=== PATIENT | male | born 1945 ===

== ENCOUNTER 2025-01-26 07:41 | Outpatient (REF) | payer OTHER, SELFPAY ==
[2025-01-26 12:59] LABS: MANUAL DIFF FLAG NO
[2025-01-26 13:11] LABS: Hematocrit 46.5 % (42.0-52.0); Hemoglobin 15.3 g/dl (14.0-18.0); Imm Gran Abs Auto 0.02 X10*3/uL (0.00-0.03); Imm Gran Pct Auto 0.3 % (0.0-0.4); Lymphocytes Absolute Auto 1.4 X10*3/uL (1.2-4.9); Mean Corpuscular HGB Conc 32.9 g/dl (31.0-36.0); Mean Corpuscular Hemoglobin 29.7 pg (27.0-33.0); Mean Corpuscular Volume 90.1 fL (80.0-98.0); NRBC Abs Auto 0.000 X10*3/uL (0.0-0.012); NRBC Pct Auto 0.0 /100WBC (0.0-0.2); Platelet Count 226 X10*3/uL (160-400); Red Blood Count 5.16 X10*6/uL (4.60-5.80); White Blood Count 5.8 X10*3/uL (4.8-10.8)
[2025-01-26 13:39] LABS: Appearance Urine Clear; Glucose Urine UA >=1000 mg/dL (Negative); PH 6.0 (5.0-9.0); Specific Gravity - Urine 1.025 (1.005-1.025); UMIC TRIGGER UACC YES
[2025-01-26 13:55] LABS: Alanine Aminotransferase 36 U/L (0-40); Albumin Level 4.2 g/dL (3.5-5.0); Alkaline Phosphatase 106 U/L (39-117); Anion Gap 10 (12-20); Aspartate Amino Transferase 31 U/L (5-37); Blood Urea Nitrogen 26 mg/dL (9-16); Calcium 9.5 mg/dL (8.4-10.2); Carbon Dioxide 29 mmol/L (22-29); Chloride 105 mmol/L (96-108); Cholesterol 248 mg/dL (<200); Estimated Glomerular Filt Rate 48; HDL Cholesterol 39 mg/dL (>40); Magnesium 2.2 mg/dL (1.6-2.6); Potassium 5.1 mmol/L (3.3-5.1); Sodium 139 mmol/L (135-145); Total Protein 8.0 g/dL (6.5-8.0); Triglycerides 193 mg/dL (<150)
[2025-01-26 14:02] LABS: Folate 12.6 ng/mL (> or = 4.0); Vitamin B12 681 pg/mL (200-900)
[2025-01-26 14:16] LABS: Microalbum/Creatinine Ratio Ur 622.6 ug/mg cr (<30)
[2025-01-27 07:18] LABS: Syphilis Screen Nonreactive (Nonreactive)
[2025-01-27 07:34] LABS: HBS Num1 0.00 mIU/mL (0-7.99); HBsAGNum1 0.43 S/CO (0.00-0.99); HIV Num 1 0.05 S/CO (0.00-0.99); Hepatitis B Surface Antigen Negative (Negative); ~Hepatitis B Surface Antibody NONREACTIVE (Nonreactive)
[2025-01-31 03:14] LABS: VITAMIN D (1,25 OH) D3 26 pg/mL; Vit D (1,25-Dihydroxy) Total 26 pg/mL (18-72); Vitamin D (1,25 OH) D2 <8 pg/mL
== END 2025-01-26 07:42 | disposition home or self-care (01) ==
LOC: HO.HKASLDS 07:41
PROVIDERS: PCP Student in an Organized Health Care Education/Training Program; Visit Provider Student in an Organized Health Care Education/Training Program
DX: I10 Essential (primary) hypertension (principal); E11.9 Type 2 diabetes mellitus without complications; E78.5 Hyperlipidemia, unspecified; E03.9 Hypothyroidism, unspecified; G62.9 Polyneuropathy, unspecified; I87.2 Venous insufficiency (chronic) (peripheral); R60.0 Localized edema; I73.9 Peripheral vascular disease, unspecified; L85.3 Xerosis cutis; Z23 Encounter for immunization
CPT/HCPCS: 36415; 80053; 80061; 81001; 82043; 82570; 82607; 82652; 82746; 83036; 83735; 84443; 85025; 86706; 86780; 87340; 87389; 90471; 90656; 96127; 99202

== ENCOUNTER 2025-01-26 07:41 | Outpatient (AMB) | payer OTHER, SELFPAY ==
--- OUTSIDE RECORDS SUMMARY | 2025-01-26 07:44 | XMS_ITS | Clinical Summary ---
Author Organization [facility] Address [address] [place] [address] Phone Care Team Providers Care Ventilating Engineer Name Role Phone Physician, No Pcp Primary Care Provider Unavaila ble Allergies No known active allergies Medications SITagliptin-metF ORMIN (JANUMET) 50-1,000 mg per tablet Take 1 tablet by mouth 2 (two) times a day with meals. Active dapagliflozin propanediol (Farxiga) 10 mg tablet Take 1 tablet (10 mg total) by mouth 1 (one) time each day. Active gabapentin (NEURONTIN) 400 mg capsule Take 1 capsule (400 mg total) by mouth at bedtime. Active levothyroxine (SYNTHROID, LEVOTHROID) 50 mcg tablet Take 1 tablet (50 mcg total) by mouth 1 (one) time each day before breakfast. Active amLODIPine (NORVASC) 5 mg tablet Take 1 tablet (5 mg total) by mouth 1 (one) time each day. Active lisinopril (PRINIVIL,ZESTRI L) 40 mg tablet Take 1 tablet (40 mg total) by mouth 1 (one) time each day. Active simvastatin (ZOCOR) 40 mg tablet Take 1 tablet (40 mg total) by mouth at bedtime. Active insulin glargine (LANTUS SoloStar) 100 unit/mL (3 mL) injection pen Inject 20-30 Units under the skin at bedtime as needed (blood glucose reading). Active insulin lispro 100 unit/mL injection Inject under the skin 3 (three) times a day before meals. 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 ([place] V24, [place] V28) 08/30/2024 Encounters Date Type Department Care Team Description 01/02/2025 9:45 AM EDT Office Visit [facility] - [place] [address] [place] [id number] Thai Canales, DPM Ulcer of toe of left foot, limited to breakdown of skin ([place] V24, [place] V28) (Primary Dx); Dermatophytosis of nail; Pain in toe of right foot; Pain in toe of left foot; Diabetic mononeuropathy simplex ([place] V24, [place] V28) from Last 3 Months Medical History Medical History Date Comments Hypertension Diabetes mellitus ([place] V24, [place] V28) Hypothyroidism Chronic kidney disease Social History Tobacco Use Types Packs/Day Years Used Date Smoking Tobacco: Former Cigarettes 0.2 4.4 S tarted: 08/30/2020 Smokeless Tobacco: Never Tobacco Cessation:Counseling Given: Not Answered Interpersonal Safety Answer Date Record ed Physical Abuse Unrecognized value 08/30/2024 Verbal Abuse Unrecognized value 08/30/2024 Sex and Gender Information Value Date Recorded Sex Assigned at Not on file Legal Sex Male 10:08 AM EDT Gender Identity Not on file Sexual Orientation Not on file Obstetrics History Last Filed Vital Signs Vital Sign Reading Time Taken Comments Blood Pressure 150/71 09/07/2024 7:54 AM EDT Pulse 68 09/07/2024 7:54 AM EDT Temperature 37.1 C (98.7 F) 09/07/2024 7:54 AM EDT Respiratory Rate 16 09/07/2024 7:54 AM EDT Oxygen Saturation 96% 09/07/2024 7:54 AM EDT Inhaled Oxygen Concentration - - Weight 107 kg (235 lb 9.6 oz) 08/30/2024 3:58 PM EDT Height 172.7 cm (5' 8 ) 08/30/2024 10:22 AM EDT Body Mass Index 35.82 08/30/2024 10:22 AM EDT Plan of Treatment Upcoming Encounters Date Type Department Care Team (Late st Contact Info) Description 04/04/2025 9:30 AM EST Office Visit Orthopedic Surgery - [place] [facility] [address] [facility] [address] [place] [address] Thai Canales, DPM [address] [facility] [address] [place] [address] Health Maintenance Due Date Last Done Comments Diabetes: Annual Retina Eye Exam 1955 DTaP,Tdap,and Td Vaccines (1 - Tdap) 1962 Pneumococcal Vaccine: 50+ Years (1 of 2 - PCV) 1962 Zoster Vaccines (1 of 2) 1993 RSV Immunization Adult Patients (1 - 1-dose 75+ series) 2018 Depression Screening 03/23/2024 Cholesterol Screening (Lipid Panel) 08/30/2024 Medicare Annual Wellness Visit 08/30/2024 Social Influencers of Health Screening 08/30/2024 Diabetes: Annual Urine Albumin-Creatinine Ratio (uACR) 09/05/2024 COVID-19 Vaccine ( season) 2024 Influenza Vaccine (#1) 2024 Diabetes: Blood Sugar Control Test (HGBA1C) 03/01/2025 08/30/2024 Diabetes: Annual Foot Exam 08/30/2025 08/30/2024 Diabetes: Annual GFR (Glomerular Filtration Rate) 09/07/2025 09/07/2024, 09/06/2024, 09/04/2024, Additional history exists Falls Risk Assessment 09/07/2025 09/07/2024 HIB Vaccines Aged Out No longer eligi ble based on patient's age to complete this topic HPV Vaccines Aged Out No longer eligi ble based on patient's age to complete this topic Hepatitis A Vaccines Aged Out No long er eligible based on patient's age to complete this topic Hepatitis B Vaccines Aged Out No long er eligible based on patient's age to complete this topic IPV Vaccines Aged Out No longer eligi ble based on patient's age to complete this topic MMR Vaccines Aged Out No longer eligi ble based on patient's age to complete this topic Meningococcal ACWY Vaccine Aged Out N o longer eligible based on patient's age to complete this topic Meningococcal B Vaccine Aged Out No l onger eligible based on patient's age to complete this topic RSV Immunization Patients Under 20 months Aged Out No longer eligible based on patient's age to complete this topic Varicella Vaccines Aged Out No longer eligible based on patient's age to complete this topic Procedures Procedure Name Priority Date/Time Associated Diagnosis Comments BASIC METABOLIC PANEL Routine 09/07/2024 5:36 AM EDT HEMOGLOBIN A1C Add-On 08/30/2024 11:55 AM EDT from Last 3 Months or Most Recently Relevant to Health Maintenance Results * (ABNORMAL) Basic metabolic panel (09/07/2024 5:36 AM EDT) Sodium 139 133 - 145 mmol/L LAB CHEMISTRY METHOD 09/07/2024 7:35 AM [facility] Potassium 4.7 3.5 - 5.5 mmol/L LAB CHEMISTRY METHOD 09/07/2024 7:35 AM [facility] Chloride 107 96 - 110 mmol/L LAB CHEMISTRY METHOD 09/07/2024 7:35 AM [facility] CO2 27 21 - 32 mmol/L LAB CHEMISTRY METHOD 09/07/2024 7:35 AM [facility] Anion Gap 5 3 - 11 LAB CHEMISTRY METHOD 09/07/2024 7:35 AM [facility] Glucose 57(L) 70 - 100 mg/dL LAB CHEMISTRY METHOD 09/07/2024 7:35 AM [facility] BUN 30(H) 5 - 25 mg/dL LAB CHEMISTRY METHOD 09/07/2024 7:35 AM [facility] Creatinine 1.30 0.70 - 1.30 mg/dL LAB CHEMISTRY METHOD 09/07/2024 7:35 AM [facility] eGFR 55(L) >=60 mL/min/1. 73m2 LAB CHEMISTRY METHOD 09/07/2024 7:35 AM [facility] Comment:Calculation based on the Chronic Kidney Disease Epidemiology Collaboration (CKD-EPI) equation refit without adjustment for race. BUN/Creatinine Ratio 23.1 LAB CHEMISTRY METHOD 09/07/2024 7:35 AM EDT [facility] Calcium 8.7 8.5 - 10.5 mg/dL LAB CHEMISTRY METHOD 09/07/2024 7:35 AM EDT [facility] Blood Venous blood specimen / Unknown Venipuncture / Unknown 09/07/2024 5:36 AM EDT 09/07/2024 6:31 AM EDT Zen Mcneill MD LAB BLOOD ORDERABLES Final Resul t Performing Organization Address City/[facility]/ZIP Co de Phone Number [facility] [address] [place] [address], [place] [phone] * (ABNORMAL) Hemoglobin A1c (08/30/2024 11:55 AM EDT) Hemoglobin A1C 8.2(H) <6.5 % LAB CHEMISTRY METHOD 08/30/2024 10:15 PM EDT [facility] Mean Bld Glu Estim. 189 mg/dL LAB CHEMISTRY METHOD 08/30/2024 10:15 PM EDT [facility] Blood Venous blood specimen / Unknown Venipuncture / Unknown 08/30/2024 11:55 AM EDT 08/30/2024 12:02 PM EDT Sera DIA LAB BLOOD ORDERABLES Final Resul t [facility] [address] [place] [address], [place] [phone] from Last 3 Months or Most Recently Relevant to Health Maintenance Insurance MEDICARE ADVANTAGE GENERIC Advance Directives Documents on File Type Date Recorded Patient Burr Grinder Expl anation Advance Directives and Living Will 09/05/2024 3:41 PM [facility] * Full Code - Default (Latest Code Status on File) Date Activated Date Inactivated Comments 08/30/2024 1:52 PM 09/07/2024 5:38 PM This is orde r is used when code status has not been discussed with the patient, or code status is otherwise unknown/unconfirmed To update the patient's code status, place a code status order. Do not modify or discontinue any currently active code status orders. Healthcare Agents on File Name Relationship Healthcare Agent Relationship Communication [facility] Health Care Agent [phone] (Mobile ) Care Teams Ventilating Engineer Relationship Specialty Start Date End Date Physician, No Pcp PCP - General 08/30/24
--- NOTE | 2025-01-26 08:05 | MHC.PC.OV ---
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 Diabetes Mellitus: The patient has a history of diabetes mellitus and associated kidney problems, for which he takes an unspecified medication. He uses Humalog insulin, administering 10 units after each meal (breakfast, lunch, and dinner). He reports he has not previously seen an diamond mounter for his eyes, nor has he consulted with a heel seam rubber or a prosthodontist/educator regarding his condition. Hypertension Currently on medication has not taken 3 months Hypothyroid Same as above History of Prostate Surgery: The patient underwent a robotic prostate surgery approximately two months ago. He also has a history of a urinary implant placement. History of left foot surgery Recently went to the tester vibrator equipment for follow-up he also states he gets his nails clipped in his feet looked at at the same time Surgical History: - Robotic prostate surgery, approximately two months ago. - Urinary implant placement. Medications: As listed Past Medical History - Diabetes Mellitus Hypertension Hypothyroid Health Maintenance - The patient has not seen an diamond mounter, heel seam rubber, or chemical educator. - Referrals will be made to ophthalmology, podiatry, a heel seam rubber, and a chemical educator. [facility] Medical History (Updated 01/26/25 @ 08:58 by Chong Ibrahim MD) Xerosis cutis Peripheral vascular disease Edema of left lower leg due to peripheral venous insufficiency Peripheral neuropathy Hypertension Hypothyroid Diabetes type 2 Family History (Updated 01/26/25 @ 08:06 by Jaymie Jefferson CMA) Mother No problems noted. Father No problems noted. Social History Housing: House Patient Tobacco Use Status: Never used Tobacco service: No Current occupational status: retired Cognitive needs: Yes (walker) Hearing needs: No Vision needs: Yes Questionnaire PHQ-9 Over the last 2 weeks, how often have you been bothered by any of the following problems? 1. Little interest or pleasure in doing things: several days 2. Feeling down, depressed, or hopeless: not at all 3. Trouble falling or staying asleep, or sleeping too much: not at all 4. Feeling tired or having little energy: several days 5. Poor appetite or overeating: several days 6. Feeling bad about yourself - or that you are a failure or have let yourself or your family down: not at all 7. Trouble concentrating on things, such as reading the newspaper or watching television: not at all 8. Moving or speaking so slowly that other people could have noticed. Or the opposite - being so fidgety or restless that you have been moving around a lot more than usual: not at all 9. Thoughts that you would be better off or of hurting yourself in some way: not at all Total score: 3 Depression Screening Interpretation: Negative Depression Screening Done: Yes Source: Developed by Drs. Freeman Sheets, Alyse Reid, Sukhwinder Soria and colleagues, with an educational trina from [employer]. Thrive Questionnaire Date Thrive assessed: 01/26/25 I am a: Patient What is your living situation today?: I choose not to answer this question Within the past 12 months, did the food you bought not last and you didn't have the money to get more?: Never true Within the past 12 months, did you worry whether your food would run out before you got money to buy more?: Never true Do you have trouble paying for medicines?: No Do you have trouble getting transportation to medical appointments?: No Do you have trouble paying your heating and electricity bill?: No Do you have trouble taking care of your child, family member or friend?: No Are you currently unemployed and looking for a job?: I choose not to answer this question Are you interested in more education?: I choose not to answer this question Please select the resources that you would like help with: None Currently or been in a relationship where the following occur: I choose not to answer THRIVE Score: 0 AUDIT C Alcohol Use Questionnaire (AUDIT-C) 1. How often do you have a drink containing alcohol?: Never Total Score: 0 LUIS-7 AMB Questionnaire LUIS-7 Date LUIS - 7 assessed: 01/26/25 Feeling nervous, anxious, or on edge: 0 = Not at all Not being able to stop or control worryin = Not at all Worrying too much about different things: 0 = Not at all Trouble relaxin = Not at all Being so restless that it is hard to sit still: 0 = Not at all Becoming easily annoyed or irritable: 0 = Not at all Feeling afraid as if something awful might happen: 0 = Not at all Total LUIS-7 score (0-4 normal; 5-9 mild; 10-14 moderate; 15-21 severe): 0 Source: Developed by Drs. Freeman Sheets, Alyse Reid, Sukhwinder Soria and colleagues, with an educational trina from [employer]. Review of Systems Narrative Review of Systems - Neurological: Reports neuropathy. 10-point ROS reviewed and negative except as noted in HPI Physical exam (Primary Care) Vital Signs: Last Vital Signs Temp 98.4 F 01/26/25 08:12 Pulse 61 01/26/25 08:12 BP 187/77 H 01/26/25 08:12 Pulse Ox 96 01/26/25 08:12 Oxygen Delivery Method Room Air 01/26/25 08:12 BMI result Body Mass Index 35.3 Tobacco/Smoking Status: Tobacco use Status Tobacco use date assessed 01/26/25 01/26/25 08:07 Patient Tobacco Use Status Never used Tobacco 01/26/25 08:07 PHQ-9: PHQ-9 Score PHQ-9: Total score 3 01/26/25 08:24 Depression Screening Interpretation: Negative Thrive Assessment: Date of Thrive Assessment Date Thrive assessed 01/26/25 01/26/25 08:07 Currently or been in a relationship where the following occur: I choose not to answer Narrative Physical Exam General: Well-appearing, in no acute distress. Vital signs: Within normal limits. HEENT: Normocephalic, atraumatic. PERRLA, EOMI. Conjunctiva clear, sclera anicteric. Oropharynx clear, mucous membranes moist. TMs intact bilaterally. Neck: Supple, no lymphadenopathy, no thyromegaly, no JVD or carotid bruits. Cardiovascular: RRR, normal S1/S2, no murmurs, rubs, or gallops. Peripheral pulses 2+ and symmetric. No edema. Respiratory: Lungs clear to auscultation bilaterally, no wheezes, rales, or rhonchi. Normal effort. Abdomen: Soft, non-tender, non-distended. Normoactive bowel sounds. No hepatosplenomegaly, no masses. MSK: Full range of motion, no joint swelling or deformity. Normal gait. Skin: Warm, dry, intact. No rashes, lesions, or pallor. Neuro: Alert and oriented x3. Cranial nerves II-XII intact. Strength 5/5 throughout. Sensation intact. Reflexes 2+ symmetric. Normal coordination and gait. Psych: Appropriate mood and affect. Normal judgment and insight. Patient reports a history of depression and was taking medication for it. Office Procedures Flu Questionnaire Does the patient have a severe egg allergy?: No Does the patient have severe life threatening allergies?: No Does the patient have a fever or illness today?: No Has the patient ever had Guillain-Alexandria Syndrome?: No Has the patient ever had any past reaction to a flu shot?: No Immunizations Fluarix [id number] (PF) 45 mcg (15 mcg x 3)/0.5 mL IM syringe Performing Provider: Chong Ibrahim MD Performing Location: [facility] [place] [place] [facility] Administered by: Hernandez Handy MA on 01/26/25 08:52 Dose Route Admin Location Dispensed Lot Number Expiration Date [facility] Director [employer] 0.5 mL IM Left Deltoid 0.5 mL [id number] 09/19/25 [id number] [employer] VIS Given Date VIS Provided VIS Publication Date 01/26/25 Single Vaccine 24 Eligibility Eligibility Date Funding Source Not [facility] Eligible 01/26/25 Private Coding Level of Care Code New Pt Level 4 (27743) Diagnoses Diabetes type 2 E11.9 Hypothyroid E03.9 Hypertension I10 Peripheral neuropathy G62.9 Edema of left lower leg due to peripheral venous insufficiency I87.2; R60.0 Peripheral vascular disease I73.9 Xerosis cutis L85.3 Assessment & Plan Assessment & Plan (1) Diabetes type 2: Code(s): E11.9 - Type 2 diabetes mellitus without complications Category: Medical (2) Hypothyroid: Code(s): E03.9 - Hypothyroidism, unspecified Category: Medical (3) Hypertension: Code(s): I10 - Essential (primary) hypertension Category: Medical (4) Peripheral neuropathy: Code(s): G62.9 - Polyneuropathy, unspecified Category: Medical (5) Edema of left lower leg due to peripheral venous insufficiency: Code(s): I87.2 - Venous insufficiency (chronic) (peripheral); R60.0 - Localized edema Category: Medical (6) Peripheral vascular disease: Code(s): I73.9 - Peripheral vascular disease, unspecified Category: Medical (7) Xerosis cutis: Code(s): L85.3 - Xerosis cutis Category: Medical Plan Consent Patient was informed and verbally consented to the use of an ambient scribe for clinic note documentation during this visit. Plan 1. Diabetes Mellitus With peripheral neuropathy - Continue Humalog insulin 10 units after each meal. - Order CBC to check hemoglobin and white and red blood cell counts. - Refer to ophthalmology for a diabetic eye exam. - Refer to a heel seam rubber for dietary counseling. - Refer to a chemical educator for education on diabetes management. - Refer to podiatry for foot care. 2. Hypertension Refill and continue medication 3. Hypothyroid Refill and continue medication Discussion Notes I discussed the patient's medical history, including diabetes hypertension and hypothyroid. We reviewed his current insulin regimen of 10 units of Humalog after each meal. I informed him that I will place referrals for him to see multiple specialists, including a tester vibrator equipment, an diamond mounter, a heel seam rubber, and a chemical educator, to ensure comprehensive management of his diabetes. I also informed him that comprehensive labs will be ordered Patient Instructions - Continue taking current medication for chronic diseases - You will be contacted to schedule appointments with a foot doctor (tester vibrator equipment), an eye doctor, a heel seam rubber, and a chemical educator. - Please have the ordered blood work completed Medical Decision Making This 80-year-old male with a history of multiple comorbidities. Physical exam revealed neuropathy and left-sided edema, likely complications of his chronic diabetes. The patient's care for his diabetes appears fragmented, as he has not seen specialists such as an diamond mounter, heel seam rubber, or chemical educator. To optimize his care and prevent further complications, a multi-disciplinary approach is necessary. Therefore, I am placing referrals to podiatry, ophthalmology, nutrition, and a chemical educator. A comprehensive lab work was ordered Total time spent caring for the patient today was 30 minutes. This includes time spent before the visit reviewing the chart, time spent documenting, and time spent reviewing laboratory results, diagnostic imaging, medications, performing a medically necessary evaluation, counseling on diagnoses, care coordination Orders: Orders Hemoglobin A1c Today Z13.9 - Encounter for screening, unspecified Hepatitis B Surface Antigen Today Z13.9 - Encounter for screening, unspecified Syphilis Screen Today Z13.9 - Encounter for screening, unspecified Complete Blood Count Auto Diff Today Z13.9 - Encounter for screening, unspecified Comprehensive Met. Panel Today Z13.9 - Encounter for screening, unspecified Hepatitis B Surface Antibody Today Z13.9 - Encounter for screening, unspecified HIV Ab/Ag Today Z13.9 - Encounter for screening, unspecified Lipid Panel Today Z13.9 - Encounter for screening, unspecified Magnesium Today Z13.9 - Encounter for screening, unspecified Microalbumin, Random (w Creat) Today Z13.9 - Encounter for screening, unspecified TSH reflex Free T4 Today Z13.9 - Encounter for screening, unspecified UA CC w/rflx Micro + Cult Today Z13.9 - Encounter for screening, unspecified Vitamin B12 and Folate Today Z13.9 - Encounter for screening, unspecified Vitamin D 1,25 dihydroxy Today Z13.9 - Encounter for screening, unspecified Influenza [id number] Immunization Today Z23 - Encounter for immunization Referrals Nurse Navigator Referral E11.9 - Type 2 diabetes mellitus without complications Podiatry Referral E11.9 - Type 2 diabetes mellitus without complications, Z13.89 - Encounter for screening for other disorder Nutrition/Dietitian Referral E11.9 - Type 2 diabetes mellitus without complications Ophthalmology Referral Z13.5 - Encounter for screening for eye and ear disorders Medications: New insulin lispro (Humalog KwikPen (U-100) Insulin) 10 units (0.1 mL) subcut TID 15 mL 3RF insulin glargine (Lantus U-100 Insulin) 10 units (0.1 mL) subcut BID 10 mL 3RF dapagliflozin propanediol (Farxiga) 10 mg PO DAILY 90 tabs 0RF simvastatin 40 mg PO BEDTIME 90 tabs 0RF levothyroxine 50 mcg PO DAILY 90 caps 0RF lisinopril 40 mg PO DAILY 90 tabs 0RF sitagliptin phos-metformin 50-1,000 mg (Lennyumet) 1 tab PO BID 90 tabs 0RF
[2025-01-26 08:12] VITALS: BP 187/77; PULSE 61; TEMP 36.9; O2SAT 96; BMI 35.3
== END 2025-01-26 08:51 | disposition home or self-care (01) ==
PROVIDERS: Visit Provider Student in an Organized Health Care Education/Training Program
DX: E11.9 Type 2 diabetes mellitus without complications (principal); E03.9 Hypothyroidism, unspecified; I10 Essential (primary) hypertension; G62.9 Polyneuropathy, unspecified; I87.2 Venous insufficiency (chronic) (peripheral); R60.0 Localized edema; I73.9 Peripheral vascular disease, unspecified; L85.3 Xerosis cutis; Z23 Encounter for immunization

== ENCOUNTER 2025-02-03 14:16 | Outpatient (AMB) | payer OTHER, SELFPAY ==
--- NOTE | 2025-02-03 14:18 | MHC.PC.OV ---
Vital Signs 02/03/25 14:19 Height 5 ft 7.52 in Weight 232 lb 4 oz BMI 35.8 BP 166/69 H Blood Pressure Location Lt brachial Position Sitting Respiration 16 Pulse 64 Pulse Source Pulse Oximeter Temp 97.8 F Temp Source Oral Pulse Oximetry (%) 94 Oxygen Delivery Method Room Air Intake Visit Reasons: Lab Review Allergies No Known Allergies Allergy (Verified 02/03/25 14:19) Tobacco use date assessed: 01/26/25 Dental Screening Dental Screen Date: 01/26/25 HPI HPI Comments History of Present Illness Details History of Present Illness The patient is an 80-year-old male presenting for a review of laboratory results. Type 2 Diabetes Mellitus: The patient has a history of diabetes, and his recent hemoglobin A1c was 11.4%, which is an increase from his previous level of 8%. He reports not taking his medications for the past 3 months. There has been an issue with the pharmacy in obtaining his Lantus prescription. Essential Hypertension: The patient's blood pressure is noted to be slightly high, which is attributed to not receiving his amlodipine prescription. He has been taking lisinopril, and his blood pressure is lower than at his last visit. Chronic Kidney Disease: The patient has a known history of kidney problems, and his recent labs indicate that his kidneys are a working a little slow. He is urinating a lot of protein, which indicates renal damage. Hyperlipidemia: The patient's lab results show elevated triglycerides at 193 mg/dL and total cholesterol at 248 mg/dL, which is attributed to not taking his medication. Medications: - Amlodipine for hypertension - Lisinopril for hypertension - Farxiga for diabetes - Lantus for diabetes Social History: - The patient reports difficulty obtaining medical records from [place], stating that they charge a fee for sending them. Diagnostic Results: - CBC: White blood cells, red blood cells, hemoglobin, and platelets are normal. - Basic Metabolic Panel: Sodium and potassium are normal. - Renal function: Kidneys are working a little slow. - Urinalysis: Shows significant proteinuria. - Glucose: Elevated. - Hemoglobin A1c: 11.4%. - Comprehensive Metabolic Panel: Calcium, magnesium, and liver function are normal. - Lipid Panel: Triglycerides 193 mg/dL, Total Cholesterol 248 mg/dL. - Vitamin levels: Vitamin B12 is 681, vitamin D and folate are normal. - Thyroid function: Normal. Past Medical History - History of kidney problems treated in [place]. Health Maintenance - Monitoring of diabetes via HbA1c. - Monitoring of kidney function. - Monitoring of lipid panel. [facility] Medical History (Updated 02/05/25 @ 19:47 by Chong Ibrahim MD) Hyperlipidemia Chronic kidney disease Xerosis cutis Peripheral vascular disease Edema of left lower leg due to peripheral venous insufficiency Peripheral neuropathy Hypertension Hypothyroid Diabetes type 2 Family History (Updated 01/26/25 @ 08:06 by Jaymie Jefferson CMA) Mother No problems noted. Father No problems noted. Social History Housing: House Patient Tobacco Use Status: Never used Tobacco service: No Current occupational status: retired Cognitive needs: Yes (walker) Hearing needs: No Vision needs: Yes Questionnaire Thrive Questionnaire Date Thrive assessed: 01/26/25 I am a: Patient What is your living situation today?: I choose not to answer this question Within the past 12 months, did the food you bought not last and you didn't have the money to get more?: Never true Within the past 12 months, did you worry whether your food would run out before you got money to buy more?: Never true Do you have trouble paying for medicines?: No Do you have trouble getting transportation to medical appointments?: No Do you have trouble paying your heating and electricity bill?: No Do you have trouble taking care of your child, family member or friend?: No Are you currently unemployed and looking for a job?: I choose not to answer this question Are you interested in more education?: I choose not to answer this question Please select the resources that you would like help with: None Currently or been in a relationship where the following occur: I choose not to answer THRIVE Score: 0 LUIS-7 AMB Questionnaire LUIS-7 Date LUIS - 7 assessed: 01/26/25 Source: Developed by Drs. Freeman Sheets, Alyse Reid, Sukhwinder Soria and colleagues, with an educational trina from [employer]. Review of Systems Narrative Review of Systems 10-point ROS reviewed and negative except as noted in HPI Physical exam (Primary Care) Vital Signs: Last Vital Signs Temp 97.8 F 02/03/25 14:19 Pulse 64 02/03/25 14:19 Resp 16 02/03/25 14:19 BP 166/69 H 02/03/25 14:19 Pulse Ox 94 02/03/25 14:19 Oxygen Delivery Method Room Air 02/03/25 14:19 BMI result Body Mass Index 35.8 Tobacco/Smoking Status: Tobacco use Status Tobacco use date assessed 01/26/25 02/03/25 14:31 Patient Tobacco Use Status Never used Tobacco 02/03/25 14:31 Thrive Assessment: Date of Thrive Assessment Date Thrive assessed 01/26/25 02/03/25 14:31 Currently or been in a relationship where the following occur: I choose not to answer Narrative Physical Exam General: Well-appearing, in no acute distress. Vital signs: Blood pressure is a little high. HEENT: Normocephalic, atraumatic. PERRLA, EOMI. Conjunctiva clear, sclera anicteric. Oropharynx clear, mucous membranes moist. TMs intact bilaterally. Neck: Supple, no lymphadenopathy, no thyromegaly, no JVD or carotid bruits. Cardiovascular: RRR, normal S1/S2, no murmurs, rubs, or gallops. Peripheral pulses 2+ and symmetric. No edema. Respiratory: Lungs clear to auscultation bilaterally, no wheezes, rales, or rhonchi. Normal effort. Abdomen: Soft, non-tender, non-distended. Normoactive bowel sounds. No hepatosplenomegaly, no masses. MSK: Full range of motion, no joint swelling or deformity. Normal gait. Skin: Warm, dry, intact. No rashes, lesions, or pallor. Neuro: Alert and oriented x3. Cranial nerves II-XII intact. Strength 5/5 throughout. Sensation intact. Reflexes 2+ symmetric. Normal coordination and gait. Psych: Appropriate mood and affect. Normal judgment and insight. Coding Level of Care Code Est Pt Level 3 (24638) Diagnoses Diabetes type 2 E11.9 Hypertension I10 Hypothyroid E03.9 Chronic kidney disease N18.9 Hyperlipidemia E78.5 Peripheral neuropathy G62.9 Peripheral vascular disease I73.9 Assessment & Plan Assessment & Plan (1) Diabetes type 2: Code(s): E11.9 - Type 2 diabetes mellitus without complications Category: Medical (2) Hypertension: Code(s): I10 - Essential (primary) hypertension Category: Medical (3) Hypothyroid: Code(s): E03.9 - Hypothyroidism, unspecified Category: Medical (4) Chronic kidney disease: Code(s): N18.9 - Chronic kidney disease, unspecified Category: Medical (5) Hyperlipidemia: Code(s): E78.5 - Hyperlipidemia, unspecified Category: Medical (6) Peripheral neuropathy: Code(s): G62.9 - Polyneuropathy, unspecified Category: Medical (7) Peripheral vascular disease: Code(s): I73.9 - Peripheral vascular disease, unspecified Category: Medical Plan Consent Patient was informed and verbally consented to the use of an ambient scribe for clinic note documentation during this visit. Plan 1. Type 2 Diabetes Mellitus With Hyperglycemia - The patient's elevated glucose and HbA1c of 11.4% are noted to be a result of not taking medication for 3 months. - The office is contacting the pharmacy to resolve the issue with the Lantus prescription. - No changes will be made to the current medication regimen at this time. - Labs will be rechecked in 3 months to monitor for improvement. 2. Essential Hypertension - The patient's blood pressure is slightly elevated due to not receiving amlodipine, though it has improved with lisinopril. - A prescription for amlodipine will be sent to the pharmacy. 3. Chronic Kidney Disease - Lab results show slow kidney function and significant proteinuria, indicating renal damage. - Continue Farxiga for renal protection. - Renal function will be monitored with repeat labs in 3 months. 4. Hyperlipidemia - Elevated triglycerides (193 mg/dL) and total cholesterol (248 mg/dL) are noted and attributed to medication non-adherence. - No changes will be made to the medication regimen at this time. - This will be re-evaluated with repeat blood work in 3 months. Discussion Notes I reviewed the patient's lab results with him. I explained that while his hemogram, electrolytes, liver function, and vitamin levels are good, there are several areas of concern primarily due to medication non-adherence over the past three months. I highlighted that his HbA1c has increased significantly to 11.4%, and his cholesterol levels are high. We discussed that his kidneys are working slowly and he has significant proteinuria, indicating kidney damage. I informed him that his blood pressure remains slightly elevated because he did not receive his amlodipine prescription, and I will be sending that to the pharmacy. I advised that we would not make any changes to his diabetes or cholesterol medications at this time, but that we will recheck his labs in three months to assess the impact of resuming his prescribed therapy. I also confirmed that my staff is addressing the pharmacy issue regarding his Lantus prescription. Patient Instructions - We have sent a prescription for amlodipine to your pharmacy to help control your blood pressure. - Continue taking your lisinopril and Farxiga as prescribed. - My office is contacting the pharmacy to help you get your Lantus insulin. - It is very important to take all of your medications as prescribed to help lower your blood sugar and cholesterol. - You will need to have your blood work redone in 3 months so we can see if the medications are working. Medical Decision Making The patient is an 80-year-old male presenting for a lab review. His primary issues of uncontrolled type 2 diabetes (HbA1c 11.4%), hypertension, and hyperlipidemia are clearly linked to medication non-adherence for the past 3 months. He also has evidence of chronic kidney disease with slow function and significant proteinuria. The management plan is focused on restoring medication adherence. I am sending a prescription for amlodipine to address the suboptimal blood pressure control and having my staff resolve the pharmacy access issue for his Lantus. Given the clear etiology of his poor metabolic control, I will not adjust his current diabetes or lipid medication dosages at this time. The plan is to reassess with repeat labs in 3 months, at which point his metabolic parameters are expected to have improved with compliance. Total Time Statement Total time spent caring for the patient today includes pre-visit chart review, documentation, review of laboratory and diagnostic imaging results, medication reconciliation, medically necessary evaluation, counseling on diagnoses, care coordination, ordering appropriate tests and medications, review of tests performed by other providers, reporting test results to the patient, and communication with other healthcare providers. Medications: New amlodipine 5 mg PO DAILY 90 tabs 0RF
[2025-02-03 14:19] VITALS: BP 166/69; PULSE 64; RESP 16; TEMP 36.6; O2SAT 94; BMI 35.8
== END 2025-02-03 14:52 | disposition home or self-care (01) ==
LOC: HO.HMCFMS 14:16
PROVIDERS: PCP Student in an Organized Health Care Education/Training Program; Visit Provider Student in an Organized Health Care Education/Training Program
DX: E11.51 Type 2 diabetes mellitus with diabetic peripheral angiopathy without gangrene (principal); I12.9 Hypertensive chronic kidney disease with stage 1 through stage 4 chronic kidney disease, or unspecified chronic kidney disease; E03.9 Hypothyroidism, unspecified; N18.9 Chronic kidney disease, unspecified; E78.5 Hyperlipidemia, unspecified; G62.9 Polyneuropathy, unspecified; I73.9 Peripheral vascular disease, unspecified

== ENCOUNTER → 2025-02-03 14:16 | Outpatient (BNVA) | payer OTHER, SELFPAY | PROVIDERS: Visit Provider Student in an Organized Health Care Education/Training Program | DX: E11.22 Type 2 diabetes mellitus with diabetic chronic kidney disease (principal); I12.9 Hypertensive chronic kidney disease with stage 1 through stage 4 chronic kidney disease, or unspecified chronic kidney disease; N18.9 Chronic kidney disease, unspecified; E03.9 Hypothyroidism, unspecified; E78.5 Hyperlipidemia, unspecified; E11.40 Type 2 diabetes mellitus with diabetic neuropathy, unspecified; I73.9 Peripheral vascular disease, unspecified | CPT/HCPCS: 99212 ==